=== PATIENT | male | born 1955 ===

== ENCOUNTER 2016-12-30 13:48 | Inpatient (IN) | payer BC, OTHER ==
--- NOTE | 2016-12-30 14:44 | RAD ---
HISTORY: chest pain COMPARISON: 04/16/2011. FINDINGS: LUNGS: No active pulmonary disease. PLEURA: No significant pleural effusion identified, no pneumothorax apparent. CARDIOVASCULAR: Normal heart size. Sternotomy wires are noted. OSSEOUS STRUCTURES: No significant abnormalities. VISUALIZED UPPER ABDOMEN: Normal. OTHER FINDINGS: None. IMPRESSION: No active disease.
[2016-12-30 14:55] LABS: BASO # 0.1 K/uL (0.0-0.2); BASO % 1.1 % (0.0-2.0); EOS # 0.3 K/uL (0.0-0.7); EOS % 3.3 % (0.0-4.0); HEMATOCRIT 22.3 % (35.0-51.0); LYMPH # 1.4 K/uL (1.0-4.3); LYMPH % 14.7 % (20.0-40.0); MEAN CELL VOLUME 85.4 fl (80.0-94.0); MEAN CORPUSCULAR HEMOGLOBIN 27.9 pg (27.0-31.0); MEAN CORPUSCULAR HGB CONC 32.7 g/dL (33.0-37.0); MEAN PLATELET VOLUME 8.2 fl (7.2-11.7); MONO # 0.6 K/uL (0.0-0.8); MONO % 6.6 % (0.0-10.0); NEUT # 7.3 K/uL (1.8-7.0); NEUT % 74.3 % (50.0-75.0); NRBC % 0.1 % (0.0-0.0); RED CELL DISTRIBUTION WIDTH 13.9 % (11.5-14.5); WHITE BLOOD COUNT 9.8 K/uL (4.8-10.8)
--- NOTE | 2016-12-30 14:55 | ED PDOC ---
HPI: Chest Pain Time Seen by Provider: 12/30/16 14:12 Chief Complaint (Nursing): Chest Pain Chief Complaint (Provider): Chest Pain History Per: Patient History/Exam Limitations: no limitations Onset/Duration Of Symptoms: Days Current Symptoms Are (Timing): Still Present Severity: Mild Quality: "Pain" Associated Symptoms: denies: Nausea, Dyspnea, Diaphoresis Modifying Factors: None Exacerbating Factors: None Alleviating Factors: None Additional Complaint(s): Patient is a 61 year old male with a history of coronary artery bypass, HTN and DM, presents to ED for dizziness and chest pain that started yesterday. Patient reports chest pain is left sided, with no SOB, nausea, back pain or palpations. Past Medical History Reviewed: Historical Data, Nursing Documentation, Vital Signs Vital Signs: Last Vital Signs Temp 97.8 F 12/30/16 14:03 Pulse 71 12/30/16 15:30 Resp 20 12/30/16 14:03 BP 115/56 L 12/30/16 14:03 Pulse Ox 100 12/30/16 15:30 - Medical History PMH: Diabetes, HTN, Hyperlipidemia - Surgical History Other surgeries: bypass - Family History Family History: States: No Known Family Hx - Living Arrangements Living Arrangements: With Family - Allergies Allergies/Adverse Reactions: Allergies Allergy/AdvReac Type Severity Reaction Status Date / Time No Known Allergies Allergy Verified 12/30/16 14:02 LEONID Risk Score for UA/NSTEMI - LEONID Risk Score Age > 64: NO 3 or more CAD Risk Factors: YES Known CAD (Stenosis greater than 50%): NO Aspirin use in past 7 days: YES Severe Angina: NO EKG ST changes greater than 0.5mm: NO Positive Cardiac Marker: NO LEONID Score: 2 Risk %: 8% Review of Systems ROS Statement: Except As Marked, All Systems Reviewed And Found Negative Constitutional: Negative for: Fever, Chills Cardiovascular: Positive for: Chest Pain. Negative for: Palpitations, Light Headedness Respiratory: Negative for: Cough, Shortness of Breath Gastrointestinal: Negative for: Nausea, Vomiting Skin: Negative for: Rash Physical Exam - Reviewed Nursing Documentation Reviewed: Yes Vital Signs Reviewed: Yes - Physical Exam Appears: Positive for: Non-toxic, No Acute Distress Skin: Positive for: Normal Color, Warm Eye Exam: Positive for: Normal appearance Neck: Positive for: Normal, Painless ROM Cardiovascular/Chest: Positive for: Regular Rate, Rhythm, Chest Non Tender. Negative for: Murmur Respiratory: Positive for: Normal Breath Sounds. Negative for: Respiratory Distress Pulses-Radial (L): 2+ Pulses-Radial (R): 2+ Gastrointestinal/Abdominal: Positive for: Normal Exam. Negative for: Tenderness Back: Positive for: Normal Inspection Extremity: Positive for: Normal ROM. Negative for: Pedal Edema, Calf Tenderness Neurologic/Psych: Positive for: Alert, Oriented. Negative for: Motor/Sensory Deficits - Laboratory Results Result Diagrams: 12/30/16 14:35 12/30/16 14:35 - ECG ECG: Positive for: Interpreted By Me ECG Rhythm: Positive for: Sinus Rhythm, ST/T Changes (depression is V4-V6) Rate: 71 O2 Sat by Pulse Oximetry: 100 (RA) Pulse Ox Interpretation: Normal Medical Decision Making Medical Decision Making: Time: 1410 Initial impression: Patient presenting with dizziness and chest pain. EKG concerning for ischemic changes. Initial plan: -- CK-MB -- CMP -- CPK -- Troponin -- CBC -- CXR -- ASA 0300pm Will sign out to Dr. Soriano to follow-up labs and imaging and reeval Scribe Attestation: Documented by Silvina Silva acting as a scribe for Jalyn Carl MD MD Scribe Attestation: All medical record entries made by the Scribe were at my direction and personally dictated by me. I have reviewed the chart and agree that the record accurately reflects my personal performance of the history, physical exam, medical decision making, and the department course for this patient. I have also personally directed, reviewed, and agree with the discharge instructions and disposition. Disposition - Clinical Impression Clinical Impression: Chest pain, Dizziness - Disposition Disposition Time: 15:31 Condition: FAIR
[2016-12-30 15:16] LABS: ALB/GLOB RATIO 1.4 (1.0-2.1); ALKALINE PHOSPHATASE 56 U/L (38-126); ALT/SGPT 26 U/L (21-72); AST/SGOT 29 U/L (17-59); BILIRUBIN,TOTAL 0.5 mg/dl (0.2-1.3); BLOOD UREA NITROGEN 36 mg/dl (9-20); CALCIUM 9.1 mg/dL (8.4-10.2); CARBON DIOXIDE 23 mmol/L (22-30); CHLORIDE 103 mmol/L (98-107); GFR AFRICAN-AMERICAN > 60; GLUCOSE,RANDOM 186 mg/dL (75-110); POTASSIUM 4.7 MMOL/L (3.6-5.0); SODIUM 139 mmol/l (132-148); TOTAL PROTEIN 7.5 G/DL (6.3-8.2)
--- NOTE | 2016-12-30 15:19 | ED PDOC ---
- Laboratory Results Result Diagrams: 12/30/16 14:35 12/30/16 14:35 - ECG O2 Sat by Pulse Oximetry: 100 (RA) Medical Decision Making Medical Decision Makin:00 Patient is signed out to me by Jalyn Carl MD pending ER workup, reassessment, and final disposition. Patient's labs demonstrate severe anemia. Transfusion ordered and discussed findings with patient. Consent signed. 1540 Elevated BUN, otherwise no clinically significant lab abnormalities, including negative troponin. [facility] Bedside rectal exam kosta Jackson RN: No signs of bleeding. Scribe Attestation: Documented by Alyssa Hennessy, acting as a scribe for Susan Dorman MD. Provider Scribe Attestation: All medical record entries made by the Scribe were at my direction and personally dictated by me. I have reviewed the chart and agree that the record accurately reflects my personal performance of the history, physical exam, medical decision making, and the department course for this patient. I have also personally directed, reviewed, and agree with the discharge instructions and disposition. Disposition Counseled Patient/Family Regarding: Studies Performed, Diagnosis - Clinical Impression Clinical Impression: Chest pain, Dizziness - POA Present On Arrival: None - Disposition Disposition: Admitted as In-Patient Disposition Time: 15:00 Condition: FAIR
[2016-12-30] MEDS ORDERED: Nitroglycerin 0.1 mg/hr Top Patch TD SCH (16:45)
--- NOTE | 2016-12-30 17:03 | HP ---
HISTORY OF PRESENT ILLNESS: This patient is a 61-year-old male who was admitted via the Emergency Ro om because of chest pain for the past 24 hours prior to presentation. It is left-sided, precordial. It does not radiate but it is associated with exertion and any form of movement. He also admits to marked shortness of breath but no palpitations. PAST MEDICAL HISTORY: Coronary artery bypass graft years ago, diabetes mellitus, hypertension, and h yperlipidemia. FAMILY HISTORY: Nonrevealing. SOCIAL HISTORY: He does not smoke or drink. REVIEW OF SYSTEMS: Essentially unremarkable. PHYSICAL EXAMINATION: GENERAL: The patient is alert, oriented, appears to be comfortable at present at rest. VITAL SIGNS: Blood pressure 115/56, pulse of 71, respiratory rate 20. He is afebrile. O2 sat 100% on nasal cannula oxygen. SKIN: Shows fair turgor. HEENT: Pupils equal and reactive to light and accommodation. Mouth shows fair hygiene. NECK: JVP flat. LUNGS: Clear. HEART: Regular. No murmurs or gallops. There is a scar from coronary artery bypass graft over the anterior chest wall area. No chest wall tenderness appreciated. ABDOMEN: Soft, nontender, no organomegaly. EXTREMITIES: Shows no edema or cyanosis. CENTRAL NERVOUS SYSTEM: Grossly intact. LABORATORY DATA: Remarkable for EKG that shows sinus rhythm, nonspecific ST-T changes. Sodium 139, potassium 4.7, BUN 36, creatinine 0.9, serum glucose 186, WBC 9.8, hemoglobin 7.3, platelet count 249 ,000. Chest x-ray shows no acute cardiopulmonary pathology. Serum troponin 0.070. IMPRESSION: Chest pains. One has to rule out acute coronary syndrome in the patient with coronary a rtery bypass graft, diabetes mellitus with hyperglycemia. PLAN: Monitor patient in telemetry. The patient also has severe anemia. We will transfuse packed r ed blood cells. This may contribute to chest pain. Would obtain cardiac evaluation, oxygen will be given. We will hold aspirin and Plavix. This patient has severe anemia. We will also hold any othe r form of anticoagulation for now. Further therapy will depend on findings. Bebeto Stokes MD cc: 62 TT: 12/30/2016 17:02:54 dn
[2016-12-30 17:13] LABS: PARTIAL THROMBOPLASTIN TIME 26.3 Seconds (25.6-37.1)
[2016-12-31 05:22] LABS: HEMATOCRIT 22.3 % (35.0-51.0); MEAN CELL VOLUME 86.2 fl (80.0-94.0); MEAN CORPUSCULAR HEMOGLOBIN 28.1 pg (27.0-31.0); MEAN CORPUSCULAR HGB CONC 32.6 g/dL (33.0-37.0); RED CELL DISTRIBUTION WIDTH 14.3 % (11.5-14.5)
[2016-12-31 05:32] LABS: CHOLESTEROL 187 mg/dL (0-199)
[2016-12-31] MEDS: Metoprolol Succinate 25 mg XL Tab PO SCH (08:07)
[2016-12-31] MEDS ORDERED: Metoprolol Succinate 25 mg XL Tab PO SCH (09:00)
[2016-12-31] MEDS ORDERED: Diatriz Meglumine/Diatriz Sod 30 ML BOTTLE PO ONE (09:03)
--- NOTE | 2016-12-31 09:37 | CP.PCM.CON ---
History of Present Illness - History of Present Illness History of Present Illness: Full Note Dictated Atypical chest pain H/O CABG H/O Fem-Pop bypass Sx Bilat carotid bruits DM(II)/HTN/Dyslipidemia Anemia with Vit B12 deficiency No evidence of ACS found Have requested Carotid sonogram. Past Patient History - Past Medical History & Family History Past Medical History?: Yes - Past Social History Smoking Status: Former Smoker - CARDIAC Hx Cardiac Disorders: Yes Hx Hypertension: Yes - PULMONARY Hx Respiratory Disorders: No - NEUROLOGICAL Hx Neurological Disorder: No - HEENT Hx HEENT Problems: No - RENAL Hx Chronic Kidney Disease: No - ENDOCRINE/METABOLIC Hx Endocrine Disorders: Yes Hx Diabetes Mellitus Type 2: Yes - HEMATOLOGICAL/ONCOLOGICAL Hx Blood Disorders: Yes Hx AIDS: No Hx Anemia: Yes Hx Human Immunodeficiency Virus (HIV): No - INTEGUMENTARY Hx Dermatological Problems: Yes Other/Comment: PSORIASIS - MUSCULOSKELETAL/RHEUMATOLOGICAL Hx Musculoskeletal Disorders: No Hx Falls: No - GASTROINTESTINAL Hx Gastrointestinal Disorders: No - GENITOURINARY/GYNECOLOGICAL Hx Genitourinary Disorders: No - PSYCHIATRIC Hx Psychophysiologic Disorder: No Hx Substance Use: No - SURGICAL HISTORY Hx Surgeries: Yes Hx Coronary Artery Bypass Graft: Yes (2010) - ANESTHESIA Hx Anesthesia: Yes Hx Anesthesia Reactions: No Meds Allergies/Adverse Reactions: Allergies Allergy/AdvReac Type Severity Reaction Status Date / Time No Known Allergies Allergy Verified 12/30/16 14:02 - Medications Medications: Current Medications Acetaminophen (Tylenol 325mg Tab) 650 mg PO Q4 PRN PRN Reason: Headache Atorvastatin Calcium (Lipitor) 10 mg PO DAILY [facility] Last Admin: 12/31/16 08:08 Dose: 10 mg Metformin HCl (Glucophage) 1,000 mg PO BID [facility] Last Admin: 12/31/16 08:08 Dose: 1,000 mg Metoprolol Succinate (Toprol Xl) 25 mg PO DAILY [facility] Last Admin: 12/31/16 08:07 Dose: Not Given Results - Vital Signs Recent Vital Signs: Last Vital Signs Temp 99.3 F 12/31/16 07:54 Pulse 82 12/31/16 07:54 Resp 18 12/31/16 07:54 BP 92/53 L 12/31/16 08:07 Pulse Ox 96 12/31/16 07:54 - Labs Result Diagrams: 12/31/16 05:00 12/30/16 14:35 Labs: Laboratory Results - last 24 hr 12/30/16 12/30/16 12/30/16 17:10 18:01 20:00 WBC RBC Hgb Hct MCV MCH MCHC RDW Plt Count Retic Count PT 10.8 INR 1.0 APTT 26.3 POC Glucose (mg/dL) 149 H Ferritin Lactate Dehydrogenase Troponin I 0.0690 Triglycerides Cholesterol LDL Cholesterol Direct HDL Cholesterol Vitamin B12 12/30/16 12/31/16 12/31/16 21:05 05:00 05:00 WBC 8.0 RBC 2.59 L Hgb 7.3 L Hct 22.3 L MCV 86.2 MCH 28.1 MCHC 32.6 L RDW 14.3 Plt Count 219 Retic Count PT INR APTT POC Glucose (mg/dL) 301 H Ferritin Lactate Dehydrogenase Troponin I Triglycerides 172 H Cholesterol 187 LDL Cholesterol Direct 127 HDL Cholesterol 27 L Vitamin B12 12/31/16 12/31/16 12/31/16 05:00 05:21 07:55 WBC RBC Hgb Hct MCV MCH MCHC RDW Plt Count Retic Count 4.8 H PT INR APTT POC Glucose (mg/dL) 302 H Ferritin Lactate Dehydrogenase Troponin I 0.0750 Triglycerides Cholesterol LDL Cholesterol Direct HDL Cholesterol Vitamin B12 12/31/16 08:12 WBC RBC Hgb Hct MCV MCH MCHC RDW Plt Count Retic Count PT INR APTT POC Glucose (mg/dL) Ferritin 8.8 Lactate Dehydrogenase 397 Troponin I Triglycerides Cholesterol LDL Cholesterol Direct HDL Cholesterol Vitamin B12 220 L
--- NOTE | 2016-12-31 10:21 | CP.PCM.CON ---
History of Present Illness - History of Present Illness History of Present Illness: This is a 61 yrs old male who came to the Er with c/o left chest pain which was severe. The pain was on the left side. In the ER he had a chest xray which was normal. The only abnormality in all his blood work was hgb of 7.3. Pt gives no h/o rectal bleeding, no hematuria or hemetemesis. No change in the caliber or color of the stools. He has a h/o having a coronary bypass 5 yrs ago, and since then has been on plavix and aspirin. No h/o abdominal pain or GERD. In the ER his cbc showed a wbc of 9.8, Hgb 7.3gms, MCV85, and platelet count was normal at 249. He has DM2 as well as hypertension He smoked 1 ppd for almost 40 yrs, but stopped 5 yrs ago. Drinks socially. Past Patient History - Past Medical History & Family History Past Medical History?: Yes - Past Social History Smoking Status: Former Smoker - CARDIAC Hx Cardiac Disorders: Yes Hx Hypertension: Yes - PULMONARY Hx Respiratory Disorders: No - NEUROLOGICAL Hx Neurological Disorder: No - HEENT Hx HEENT Problems: No - RENAL Hx Chronic Kidney Disease: No - ENDOCRINE/METABOLIC Hx Endocrine Disorders: Yes Hx Diabetes Mellitus Type 2: Yes - HEMATOLOGICAL/ONCOLOGICAL Hx Blood Disorders: Yes Hx AIDS: No Hx Anemia: Yes Hx Human Immunodeficiency Virus (HIV): No - INTEGUMENTARY Hx Dermatological Problems: Yes Other/Comment: PSORIASIS - MUSCULOSKELETAL/RHEUMATOLOGICAL Hx Musculoskeletal Disorders: No Hx Falls: No - GASTROINTESTINAL Hx Gastrointestinal Disorders: No - GENITOURINARY/GYNECOLOGICAL Hx Genitourinary Disorders: No - PSYCHIATRIC Hx Psychophysiologic Disorder: No Hx Substance Use: No - SURGICAL HISTORY Hx Surgeries: Yes Hx Coronary Artery Bypass Graft: Yes (2010) - ANESTHESIA Hx Anesthesia: Yes Hx Anesthesia Reactions: No Meds Allergies/Adverse Reactions: Allergies Allergy/AdvReac Type Severity Reaction Status Date / Time No Known Allergies Allergy Verified 12/30/16 14:02 - Medications Medications: Current Medications Acetaminophen (Tylenol 325mg Tab) 650 mg PO Q4 PRN PRN Reason: Headache Atorvastatin Calcium (Lipitor) 10 mg PO DAILY [facility] Last Admin: 12/31/16 08:08 Dose: 10 mg Metformin HCl (Glucophage) 1,000 mg PO BID [facility] Last Admin: 12/31/16 08:08 Dose: 1,000 mg Metoprolol Succinate (Toprol Xl) 25 mg PO DAILY [facility] Last Admin: 12/31/16 08:07 Dose: Not Given Physical Exam - Additional Findings Additional findings: Physical exam; Alert, well oriented, in no acute disress Neck; Supple, no ,adenopathy Chest; Clear, no rales or rhonchi Heart; RSR, no murmur Abd ; Soft, no mass. no h/s megaly. Results - Vital Signs Recent Vital Signs: Last Vital Signs Temp 99.3 F 12/31/16 07:54 Pulse 82 12/31/16 07:54 Resp 18 12/31/16 07:54 BP 92/53 L 12/31/16 08:07 Pulse Ox 96 12/31/16 07:54 - Labs Result Diagrams: 12/31/16 05:00 12/30/16 14:35 Labs: Laboratory Results - last 24 hr 12/30/16 12/30/16 12/30/16 17:10 18:01 20:00 WBC RBC Hgb Hct MCV MCH MCHC RDW Plt Count Retic Count PT 10.8 INR 1.0 APTT 26.3 POC Glucose (mg/dL) 149 H Ferritin Lactate Dehydrogenase Troponin I 0.0690 Triglycerides Cholesterol LDL Cholesterol Direct HDL Cholesterol Vitamin B12 12/30/16 12/31/16 12/31/16 21:05 05:00 05:00 WBC 8.0 RBC 2.59 L Hgb 7.3 L Hct 22.3 L MCV 86.2 MCH 28.1 MCHC 32.6 L RDW 14.3 Plt Count 219 Retic Count PT INR APTT POC Glucose (mg/dL) 301 H Ferritin Lactate Dehydrogenase Troponin I Triglycerides 172 H Cholesterol 187 LDL Cholesterol Direct 127 HDL Cholesterol 27 L Vitamin B12 12/31/16 12/31/16 12/31/16 05:00 05:21 07:55 WBC RBC Hgb Hct MCV MCH MCHC RDW Plt Count Retic Count 4.8 H PT INR APTT POC Glucose (mg/dL) 302 H Ferritin Lactate Dehydrogenase Troponin I 0.0750 Triglycerides Cholesterol LDL Cholesterol Direct HDL Cholesterol Vitamin B12 12/31/16 08:12 WBC RBC Hgb Hct MCV MCH MCHC RDW Plt Count Retic Count PT INR APTT POC Glucose (mg/dL) Ferritin 8.8 Lactate Dehydrogenase 397 Troponin I Triglycerides Cholesterol LDL Cholesterol Direct HDL Cholesterol Vitamin B12 220 L Assessment & Plan - Assessment and Plan (Free Text) Assessment: IMP since his admission I had ordered tests. his retic count is 4,8., ferritin low at 8.8ng, vit b 12 only 220.This combined defiiciency makes me wonder if he has a stomach lesion, which could be bleeding microscopically. Plan: plan; Have ordered CT scan of the chest, abdomen and pelvis. He has been transfused 2 units of packed cells, by now, . While he is in the hospital will give him IV iron + B12 sub q until the other results come back. - Date & Time Date: 12/31/16 Time: 10:39
--- NOTE | 2016-12-31 11:57 | CON ---
DATE: 12/31/2016 He is hospitalized under Dr. Stokes's care. This 61-year-old, hypertensive, diabetic man who used to be an ex-smoker reports having developed sev ere claudication in his right lower extremity, for which he underwent bypass procedure in 2010. Thre e years back, subsequently required coronary bypass graft surgery and has been doing well, though eleanor e degree of claudication in the right leg has persisted. He reports having developed aches and pains in the upper part of his body for approximately 5-6 days. He came into the hospital complaining of a persistent right infraclavicular and right shoulder pain, which is not connected to any physical ex ertion, but body movements have been painful. The patient denies history suggestive of congestive ca rdiac failure. He has taken his medicines regularly. Denies any lateralizing neurological symptoms. PHYSICAL EXAMINATION: GENERAL: Shows a middle-aged man who is lying comfortably in bed, at this point, free of any discomf ort. VITAL SIGNS: Has a heart rate of 74 beats per minute, regular, and his blood pressure in both upper extremities was 100/60 mmHg. His jugular venous pressure was not elevated. EXTREMITIES: There was no edema over his lower extremities. The pedal pulses were not palpable. NECK: There were loud carotid bruits bilaterally, louder on the right side as compared to the left s pool. HEART: Scar of sternotomy was evident. The first and second heart sounds were normal. There was a very brief apical systolic murmur, but no gallop rhythm. LUNGS: There were no rales. ABDOMEN: Soft. Liver and spleen were not palpable. His electrocardiogram in the Emergency Room showed sinus rhythm at 71 beats per minute with depressed ST segments in leads II and aVF as well as V3, V4, V5, and V6. There were no inversion of T waves a nd no Q-waves were seen on the electrocardiogram. A followup cardiogram has been requested to see if these changes were transient or whether these changes are chronic. Three sets of cardiac enzymes ar e negative for any evidence of myocyte injury. His hemoglobin and hematocrit were 7.3 g and 22.3% re spectively. MCV was normal. His WBC count and platelet counts were normal. His retic count was 4.8 %, which indicates significant marrow response to anemia. His serum ferritin was 8.8 and his BUN and creatinine were 36 and 0.9 mg percent. GFR exceeded 60 mL per minute. LDH was also normal, indicat ing no ongoing hemolysis. Vitamin B12 level was 202 pg/mL, indicative of B12 deficiency. His LDL ch olesterol was 127 and his HDL cholesterol was 27, which is markedly depressed. IMPRESSION: At this time is diffuse vascular disease as evidenced by severe claudication in lower ex tremity requiring bypass procedure, evidence of coronary artery disease in the form of requiring yariel nary bypass graft surgery and loud carotid bruits on both sides. There is no evidence of acute coron raj syndrome. The patient will have a carotid sonogram and would require B12 replacement. At this j uncture, he is hemodynamically stable. Mg Burns MD cc: 23 TT: 12/31/2016 11:57:21 Confirmation # [id number] Dictation # [id number]
--- NOTE | 2016-12-31 12:27 | PQF ANEMIA ---
Dr. Stokes, Please clarify the type of anemia: if known after work -up completed: see the Physician Response Section below Hematology consult:-- his retic count is 4,8., ferritin low at 8.8ng, vit b 12 only 220.This combined defiiciency makes me wonder if he has a stomach lesion, which could be bleeding microscopically. Plan: Have ordered CT scan of the chest, abdomen and pelvis. He has been transfused 2 units of packed cells, by now, . While he is in the hospital will give him IV iron + B12 sub q until the other results come back. This form is a permanent part of the medical record Clarification of your documentation is requested to better reflect the severity of illness and intensity of treatment of your patient. Indicators present [] Anemia [] Drop in H&H from []___ to []___ [] Hypotension [] GI Bleed [] Transfusion(s) [] Acute bleed other sites [] Tachycardia [] Surgical Procedure Blood Loss (expected not a complication) Other:[] Location in the medical record that reflects the above clinical findings: [] Treatment Provided: [] PHYSICIAN'S RESPONSE Based on your medical judgment of the clinical indicators outlined above, are you treating this patient for a known or suspected: [] Acute blood loss anemia [] Chronic blood loss anemia [] Acute on Chronic blood loss anemia [] Anemia due to malignancy [] Anemia due to chemotherapy or radiation therapy [] Anemia of Chronic Disease, please specify: [] [] Other, please indicate type of anemia []____ [] If Unable to Determine, please check the box, sign and date. Present On Admission (POA) Indicator: [] Present at the time of admission [] Not present at the time of admission [] Clinically Undetermined In responding to this query, please exercise your independent professional judgment. The fact that a question is asked does not imply that any particular answer is desired or expected. Thank you for your clarification on this documentation. If you have any questions please call. * Thank you, Veronica Kim RN BSN ext. #[phone] MTDD
--- NOTE | 2016-12-31 13:45 | CP.PCM.PN ---
Subjective - Date & Time of Evaluation Date of Evaluation: 12/31/16 Time of Evaluation: 13:47 - Subjective Subjective: DENIES CHEST PAINS TODAY BUT INDICATES THAT HE HAS ON AND OFF ABDOMINAL PAINS Objective - Vital Signs/Intake and Output Vital Signs (last 24 hours): Temp Pulse Resp BP Pulse Ox 98.6 F 82 18 90/50 L 96 12/31/16 11:58 12/31/16 11:58 12/31/16 11:58 12/31/16 11:58 12/31/16 11:58 - Medications Medications: Current Medications Acetaminophen (Tylenol 325mg Tab) 650 mg PO Q4 PRN PRN Reason: Headache Atorvastatin Calcium (Lipitor) 10 mg PO DAILY [facility] Last Admin: 12/31/16 08:08 Dose: 10 mg Cyanocobalamin (Vitamin B12 1000 Mcg/Ml Inj) 1,000 mcg IM DAILY [facility] Insulin Human Lispro (Humalog) 0 units SC ACHS [facility] PRN Reason: Protocol Metformin HCl (Glucophage) 1,000 mg PO BID [facility] Last Admin: 12/31/16 08:08 Dose: 1,000 mg Metoprolol Succinate (Toprol Xl) 25 mg PO DAILY [facility] Last Admin: 12/31/16 08:07 Dose: Not Given - Labs Labs: 12/31/16 05:00 PT 10.8 Seconds (9.8-13.1) 12/30/16 17:10 INR 1.0 (0.9-1.2) 12/30/16 17:10 APTT 26.3 Seconds (25.6-37.1) 12/30/16 17:10 - Constitutional Appears: Chronically Ill - Head Exam Head Exam: ATRAUMATIC, NORMAL INSPECTION, NORMOCEPHALIC - Eye Exam Eye Exam: EOMI, Normal appearance, PERRL Pupil Exam: NORMAL ACCOMODATION, PERRL - ENT Exam ENT Exam: Mucous Membranes Moist, Normal Exam - Neck Exam Neck Exam: Full ROM, Normal Inspection. absent: Lymphadenopathy - Respiratory Exam Respiratory Exam: Clear to Ausculation Bilateral, NORMAL BREATHING PATTERN - Cardiovascular Exam Cardiovascular Exam: REGULAR RHYTHM, +S1, +S2. absent: Murmur - GI/Abdominal Exam GI & Abdominal Exam: Soft, Normal Bowel Sounds. absent: Tenderness - Rectal Exam Rectal Exam: NORMAL INSPECTION - Extremities Exam Extremities Exam: Full ROM, Normal Capillary Refill, Normal Inspection. absent : Joint Swelling, Pedal Edema - Back Exam Back Exam: NORMAL INSPECTION - Neurological Exam Neurological Exam: Alert, Awake, CN II-XII Intact, Normal Gait, Oriented x3 - Psychiatric Exam Psychiatric exam: Normal Affect, Normal Mood - Skin Skin Exam: Dry, Intact, Normal Color, Warm Assessment and Plan - Assessment and Plan (Free Text) Assessment: CHEST PAIN ABDOMINAL PAIN SEVERE ANEMIA?ETIOLOGY-R/O OCCULT MALIGNANCY DOUBT GI BLOOD LOSS--STOOL HEME NEGATIVE ASHD CLAUDICATION HTN Plan: TRANSFUSION OF PRBCS CONTINUE HEME AND CARDIAC EVAL CT OF CHEST/ABD/PELVIS--R/O LESIONS
--- NOTE | 2016-12-31 14:29 | CARD ---
APPROVED REPORT EKG Measurement Heart [id number] <Conclusion> Normal sinus rhythm Possible Left atrial enlargement ST & T wave abnormality, consider lateral ischemia Prolonged QT Abnormal ECG
[2016-12-31] MEDS ORDERED: Sodium Chloride 0.9% 50 ML IV ONE (15:49)
[2016-12-31] MEDS ORDERED: Iohexol 300 100 ML IJ ONE (15:49)
--- NOTE | 2016-12-31 17:07 | CT ---
PROCEDURE: CT Chest, Abdomen and Pelvis with intravenous contrast HISTORY: anemia, right chest pain COMPARISON: None. TECHNIQUE: IV dose administered: 95 cc Omnipaque 300 Radiation dose: Total exam DLP = 758.28 mGy-cm. This CT exam was performed using one or more of the following dose reduction techniques: Automated exposure control, adjustment of the mA and/or kV according to patient size, and/or use of iterative reconstruction technique. FINDINGS: CT CHEST WITH CONTRAST: LUNGS: Clear. No nodule, mass or consolidation. MEDIASTINUM: Unremarkable. Normal caliber aorta and pulmonary arterial trunk. No aortic dissection. Normal size heart. LYMPH NODES: Unremarkable. PLEURA: Unremarkable. No pneumothorax. No pleural fluid. BONES: Unremarkable. OTHER FINDINGS: None. CT ABDOMEN AND PELVIS: LIVER: Unremarkable. No gross lesion or ductal dilatation. GALLBLADDER AND BILE DUCTS: Unremarkable. PANCREAS: Unremarkable. No gross lesion or ductal dilatation. SPLEEN: Unremarkable. ADRENALS: Unremarkable. No mass. KIDNEYS AND URETERS: Unremarkable. No hydronephrosis. No solid mass. Incidental finding(s): Bilateral simple renal cysts the largest in the upper pole of the right kidney measures 4 cm. VASCULATURE: Unremarkable. No aortic aneurysm. BOWEL: Unremarkable. No obstruction. No gross mural thickening. Constipation without fecal impaction or obstruction. APPENDIX: No abnormalities to suggest acute appendicitis. No right lower quadrant inflammatory processes identified.Trace fluid in the right lower quadrant. PERITONEUM: Unremarkable. No free fluid. No free air. LYMPH NODES: Unremarkable. No enlarged lymph nodes. BLADDER: Markedly distended urinary bladder. REPRODUCTIVE: Unremarkable. BONES: No acute fracture. OTHER FINDINGS: None. IMPRESSION: No significant or acute findings to account for/ related to the clinical presentation. Additional benign and/or incidental findings described above.
[2016-12-31] MEDS: Insulin Lispro (humaLOG) 100 Units/ml Inj SC SCH ×2 (17:15→22:00)
--- NOTE | 2016-12-31 18:42 | US ---
PROCEDURE: Duplex ultrasound of the carotid and vertebral arteries. HISTORY: Bilat Carotid Bruits COMPARISON: None available. TECHNIQUE: Grayscale and duplex Doppler evaluation of the cervical carotid and vertebral arteries were performed. The common carotid, carotid bifurcations and cervical ICA and proximal ECA were evaluated. The vertebral arteries were evaluated for gross patency and direction. FINDINGS: RIGHT CAROTID ARTERIES: There are calcified atherosclerotic plaques in the carotid bulbs, external and internal carotid arteries. Common Carotid Artery: Normal. Maximal flow velocity of 113 cm/s. Carotid Bifurcation: Normal. Internal Carotid Artery:Normal. Maximal flow velocity of 110.4 cm/s. External Carotid Artery (proximal branches): Elevated. Maximal flow velocity of 202.3 cm/s. ICA/CCA Ratio: 1.0 LEFT CAROTID ARTERIES: There are calcified atherosclerotic plaques in the carotid bulbs, external and internal carotid arteries. Common Carotid Artery: Normal. Maximal flow velocity of 141.0 cm/s. Carotid Bifurcation: Normal. Internal Carotid Artery:Normal. Maximal flow velocity of 126.6 cm/s. External Carotid Artery (proximal branches): Elevated. Maximal flow velocity of 175.4 cm/s. ICA/CCA Ratio: 1.0 VERTEBRAL ARTERIES: Right Vertebral Artery: Patent. Antegrade flow. Left Vertebral Artery: Patent. Antegrade flow. OTHER FINDINGS: None. IMPRESSION: No evidence of hemodynamically significant stenosis in the internal carotid arteries. Elevated peak systolic velocities in bilateral external carotid arteries.
[2016-12-31 19:01] LABS: HEMATOCRIT 24.8 % (35.0-51.0); MEAN CELL VOLUME 86.1 fl (80.0-94.0); MEAN CORPUSCULAR HEMOGLOBIN 28.7 pg (27.0-31.0); MEAN CORPUSCULAR HGB CONC 33.3 g/dL (33.0-37.0); RED CELL DISTRIBUTION WIDTH 14.7 % (11.5-14.5); WHITE BLOOD COUNT 6.5 K/uL (4.8-10.8)
[2017-01-01] MEDS: Insulin Lispro (humaLOG) 100 Units/ml Inj SC SCH ×4 (06:35→21:35)
[2017-01-01 07:16] LABS: HEMATOCRIT 25.4 % (35.0-51.0); MEAN CELL VOLUME 86.5 fl (80.0-94.0); MEAN CORPUSCULAR HEMOGLOBIN 28.6 pg (27.0-31.0); RED CELL DISTRIBUTION WIDTH 14.8 % (11.5-14.5); WHITE BLOOD COUNT 8.2 K/uL (4.8-10.8)
--- NOTE | 2017-01-01 08:16 | CP.PCM.PN ---
Subjective - Date & Time of Evaluation Date of Evaluation: 01/01/17 Time of Evaluation: 08:14 - Subjective Subjective: Pt is feeling a little better today. He is on venofer as well as B12 daily. There is no bleeding from any site, and the CT scan of the chest and abdomen shows no malignancy, May elisabeth a GI work up./ Objective - Vital Signs/Intake and Output Vital Signs (last 24 hours): Temp Pulse Resp BP Pulse Ox 98.6 F 79 20 121/63 98 01/01/17 05:02 01/01/17 05:02 01/01/17 05:02 01/01/17 05:02 01/01/17 05:02 - Medications Medications: Current Medications Acetaminophen (Tylenol 325mg Tab) 650 mg PO Q4 PRN PRN Reason: Headache Atorvastatin Calcium (Lipitor) 10 mg PO DAILY [facility] Last Admin: 12/31/16 08:08 Dose: 10 mg Cyanocobalamin (Vitamin B12 1000 Mcg/Ml Inj) 1,000 mcg IM DAILY [facility] Insulin Human Lispro (Humalog) 0 units SC ACHS [facility] PRN Reason: Protocol Last Admin: 01/01/17 06:35 Dose: Not Given Metformin HCl (Glucophage) 1,000 mg PO BID [facility] Last Admin: 12/31/16 08:08 Dose: 1,000 mg Metoprolol Succinate (Toprol Xl) 25 mg PO DAILY [facility] Last Admin: 12/31/16 08:07 Dose: Not Given - Labs Labs: 01/01/17 06:30 PT 10.8 Seconds (9.8-13.1) 12/30/16 17:10 INR 1.0 (0.9-1.2) 12/30/16 17:10 APTT 26.3 Seconds (25.6-37.1) 12/30/16 17:10 Assessment and Plan - Assessment and Plan (Free Text) Plan: Plan; Continue venofer and B12,
[2017-01-01] MEDS: Metoprolol Succinate 25 mg XL Tab PO SCH (09:30)
--- NOTE | 2017-01-01 11:16 | CP.PCM.PN ---
Subjective - Date & Time of Evaluation Date of Evaluation: 01/01/17 Time of Evaluation: 11:18 - Subjective Subjective: NO CHEST OR ABDOMINBAL PAINS TODAY ALL WORKUP SO FAR NON-REVEALING EXCEPT FOR SEVERE ANEMIA Objective - Vital Signs/Intake and Output Vital Signs (last 24 hours): Temp Pulse Resp BP Pulse Ox 98.4 F 71 18 110/59 L 98 01/01/17 08:00 01/01/17 08:00 01/01/17 08:00 01/01/17 09:30 01/01/17 08:00 - Medications Medications: Current Medications Acetaminophen (Tylenol 325mg Tab) 650 mg PO Q4 PRN PRN Reason: Headache Last Admin: 01/01/17 10:16 Dose: 650 mg Atorvastatin Calcium (Lipitor) 10 mg PO DAILY [facility] Last Admin: 01/01/17 09:30 Dose: 10 mg Cyanocobalamin (Vitamin B12 1000 Mcg/Ml Inj) 1,000 mcg IM DAILY [facility] Last Admin: 01/01/17 09:32 Dose: 1,000 mcg Iron Sucrose 200 mg/ Sodium (Chloride) 110 mls @ 0 mls/hr IVPB DAILY [facility] PRN Reason: As Directed Last Admin: 01/01/17 10:22 Dose: 200 mls/hr Insulin Human Lispro (Humalog) 0 units SC ACHS [facility] PRN Reason: Protocol Last Admin: 01/01/17 06:35 Dose: Not Given Metformin HCl (Glucophage) 1,000 mg PO BID [facility] Last Admin: 12/31/16 08:08 Dose: 1,000 mg Metoprolol Succinate (Toprol Xl) 25 mg PO DAILY [facility] Last Admin: 01/01/17 09:30 Dose: Not Given - Labs Labs: 01/01/17 06:30 PT 10.8 Seconds (9.8-13.1) 12/30/16 17:10 INR 1.0 (0.9-1.2) 12/30/16 17:10 APTT 26.3 Seconds (25.6-37.1) 12/30/16 17:10 - Constitutional Appears: No Acute Distress - Head Exam Head Exam: ATRAUMATIC, NORMAL INSPECTION, NORMOCEPHALIC - Eye Exam Eye Exam: EOMI, Normal appearance, PERRL Pupil Exam: NORMAL ACCOMODATION, PERRL - ENT Exam ENT Exam: Mucous Membranes Moist, Normal Exam - Neck Exam Neck Exam: Full ROM, Normal Inspection. absent: Lymphadenopathy - Respiratory Exam Respiratory Exam: Clear to Ausculation Bilateral, NORMAL BREATHING PATTERN - Cardiovascular Exam Cardiovascular Exam: REGULAR RHYTHM, +S1, +S2. absent: Murmur - GI/Abdominal Exam GI & Abdominal Exam: Soft, Normal Bowel Sounds. absent: Tenderness - Rectal Exam Rectal Exam: NORMAL INSPECTION - Extremities Exam Extremities Exam: Full ROM, Normal Capillary Refill, Normal Inspection. absent : Joint Swelling, Pedal Edema - Back Exam Back Exam: NORMAL INSPECTION - Neurological Exam Neurological Exam: Alert, Awake, CN II-XII Intact, Normal Gait, Oriented x3 - Psychiatric Exam Psychiatric exam: Normal Affect, Normal Mood - Skin Skin Exam: Dry, Intact, Normal Color, Warm Assessment and Plan - Assessment and Plan (Free Text) Assessment: CHEST PAIN-RESOLVED ABDOMINAL PAIN RESOLVED SEVERE IRON DEFICIENCY ANEMIA-?ETIOLOGY DM HTN ASHD-S/P CABG Plan: CONTINUE IV IRON INFUSION D/C IN AM IF STABLE ADVISED OUT PT GASTROENTEROLOGY EVALUATION FOR POSSIBLE EGD AND COLONOSCOPY WHEN STABLE--HE WILL FOLLOW UP WIYTH HIS PMD TO ARRANGE SAME
[2017-01-01 21:56] LABS: RBC URINE 5 /hpf (0-3); URINE BILIRUBIN NEGATIVE (NEGATIVE); URINE BLOOD SMALL (NEGATIVE); URINE COLOR YELLOW (YELLOW); URINE GLUCOSE (UA) >=500 mg/dL (Normal); URINE KETONE 80 mg/dL (NEGATIVE); URINE LEUKOCYTE ESTERASE TRACE Leu/uL (Negative); URINE PROTEIN NEGATIVE (NEGATIVE); URINE UROBILINOGEN 0.2-1.0 mg/dL (0.2-1.0); WBC URINE 19 /hpf (0-5)
[2017-01-02 00:12] VITALS: RESP 18
[2017-01-02] MEDS: Insulin Lispro (humaLOG) 100 Units/ml Inj SC SCH ×2 (06:58→12:18)
[2017-01-02 08:52] LABS: HEMATOCRIT 27.7 % (35.0-51.0); MEAN CELL VOLUME 85.4 fl (80.0-94.0); MEAN CORPUSCULAR HEMOGLOBIN 28.6 pg (27.0-31.0); MEAN CORPUSCULAR HGB CONC 33.5 g/dL (33.0-37.0); RED CELL DISTRIBUTION WIDTH 14.9 % (11.5-14.5); WHITE BLOOD COUNT 8.6 K/uL (4.8-10.8)
[2017-01-02] MEDS: Metoprolol Succinate 25 mg XL Tab PO SCH (08:54)
--- NOTE | 2017-01-02 11:40 | CP.PCM.DIS ---
Provider - Provider Date of Admission: 12/30/16 15:52 Attending physician: Bebeto Stokes MD Time Spent in preparation of Discharge (in minutes): 35 Diagnosis - Discharge Diagnosis (1) Coronary artery disease Status: Acute (2) Chest pain Status: Acute (3) Iron deficiency anemia Status: Acute (4) Hypertension Status: Acute (5) Hyperlipidemia Status: Acute (6) Diabetes 1.5, managed as type 2 Status: Acute Hospital Course - Lab Results Lab Results: Most Recent Lab Values WBC 8.6 K/uL (4.8-10.8) 01/02/17 06:30 RBC 3.25 Mil/uL (4.40-5.90) L 01/02/17 06:30 Hgb 9.3 g/dL (12.0-18.0) L 01/02/17 06:30 Hct 27.7 % (35.0-51.0) L 01/02/17 06:30 MCV 85.4 fl (80.0-94.0) 01/02/17 06:30 MCH 28.6 pg (27.0-31.0) 01/02/17 06:30 MCHC 33.5 g/dL (33.0-37.0) 01/02/17 06:30 RDW 14.9 % (11.5-14.5) H 01/02/17 06:30 Plt Count 299 K/uL (130-400) 01/02/17 06:30 MPV 8.2 fl (7.2-11.7) 12/30/16 14:35 Neut % (Auto) 74.3 % (50.0-75.0) 12/30/16 14:35 Lymph % (Auto) 14.7 % (20.0-40.0) L 12/30/16 14:35 [place] % (Auto) 6.6 % (0.0-10.0) 12/30/16 14:35 Eos % (Auto) 3.3 % (0.0-4.0) 12/30/16 14:35 Baso % (Auto) 1.1 % (0.0-2.0) 12/30/16 14:35 Neut # 7.3 K/uL (1.8-7.0) H 12/30/16 14:35 Lymph # 1.4 K/uL (1.0-4.3) 12/30/16 14:35 [place] # 0.6 K/uL (0.0-0.8) 12/30/16 14:35 Eos # 0.3 K/uL (0.0-0.7) 12/30/16 14:35 Baso # 0.1 K/uL (0.0-0.2) 12/30/16 14:35 Retic Count 4.8 % (0.5-1.5) H 12/31/16 07:55 Haptoglobin 164 mg/dL (43-212) 12/31/16 08:47 PT 10.8 Seconds (9.8-13.1) 12/30/16 17:10 INR 1.0 (0.9-1.2) 12/30/16 17:10 APTT 26.3 Seconds (25.6-37.1) 12/30/16 17:10 Sodium 139 mmol/l (132-148) 12/30/16 14:35 Potassium 4.7 MMOL/L (3.6-5.0) 12/30/16 14:35 Chloride 103 mmol/L (98-107) 12/30/16 14:35 Carbon Dioxide 23 mmol/L (22-30) 12/30/16 14:35 Anion Gap 18 (10-20) 12/30/16 14:35 BUN 36 mg/dl (9-20) H 12/30/16 14:35 Creatinine 0.9 mg/dL (0.8-1.5) 12/30/16 14:35 Est GFR ( Amer) > 60 12/30/16 14:35 Est GFR (Non-Af Amer) > 60 12/30/16 14:35 POC Glucose (mg/dL) 351 mg/dL (65-110) H 01/02/17 11:01 Random Glucose 186 mg/dL (75-110) H 12/30/16 14:35 Calcium 9.1 mg/dL (8.4-10.2) 12/30/16 14:35 Ferritin 8.8 ng/mL 12/31/16 08:12 Total Bilirubin 0.5 mg/dl (0.2-1.3) 12/30/16 14:35 AST 29 U/L (17-59) 12/30/16 14:35 ALT 26 U/L (21-72) 12/30/16 14:35 Alkaline Phosphatase 56 U/L (38-126) 12/30/16 14:35 Lactate Dehydrogenase 397 U/L (313-618) 12/31/16 08:12 Total Creatine Kinase 103 U/L (55-170) 12/30/16 14:35 CK-MB (Mass) 2.39 ng/mL (0.0-3.38) 12/30/16 14:35 Troponin I 0.0750 ng/mL (0.00-0.120) 12/31/16 05:00 Total Protein 7.5 G/DL (6.3-8.2) 12/30/16 14:35 Total Protein (PEP) 6.0 g/dL (6.1-8.1) L 01/01/17 10:15 Albumin 4.3 g/dL (3.5-5.0) 12/30/16 14:35 Globulin 3.2 gm/dL (2.2-3.9) 12/30/16 14:35 Albumin/Globulin Ratio 1.4 (1.0-2.1) 12/30/16 14:35 Triglycerides 172 mg/DL (0-149) H 12/31/16 05:00 Cholesterol 187 mg/dL (0-199) 12/31/16 05:00 LDL Cholesterol Direct 127 mg/dL (0-129) 12/31/16 05:00 HDL Cholesterol 27 MG/DL (30-70) L 12/31/16 05:00 Vitamin B12 220 pg/mL (239-931) L 12/31/16 08:12 Urine Color Yellow (YELLOW) 01/01/17 21:40 Urine Clarity Clear (Clear) 01/01/17 21:40 Urine pH 5.0 (5.0-8.0) 01/01/17 21:40 Ur Specific [place] 1.030 (1.003-1.030) 01/01/17 21:40 Urine Protein Negative mg/dL (NEGATIVE) 01/01/17 21:40 Urine Glucose (UA) >=500 mg/dL (Normal) 01/01/17 21:40 Urine Ketones 80 mg/dL (NEGATIVE) 01/01/17 21:40 Urine Blood Small (NEGATIVE) 01/01/17 21:40 Urine Nitrate Negative (NEGATIVE) 01/01/17 21:40 Urine Bilirubin Negative (NEGATIVE) 01/01/17 21:40 Urine Urobilinogen 0.2-1.0 mg/dL (0.2-1.0) 01/01/17 21:40 Ur Leukocyte Esterase Trace Thanh/uL (Negative) 01/01/17 21:40 Urine RBC (Auto) 5 /hpf (0-3) H 01/01/17 21:40 Urine Microscopic WBC 19 /hpf (0-5) H 01/01/17 21:40 Ur Squamous Epith Cells 3 /hpf (0-5) 01/01/17 21:40 Hyaline Casts 0-2 /hpf (0-2) 01/01/17 21:40 Stool Occult Blood Negative (NEGATIVE) 12/30/16 16:21 Blood Type O POSITIVE 12/30/16 15:12 Blood Type Confirm O POSITIVE 12/30/16 15:45 Antibody Screen Negative 12/30/16 15:12 Crossmatch See Detail 12/30/16 15:12 BBK History Checked No verified bt 12/30/16 15:12 - Hospital Course Hospital Course: chest and abdominal pains resolved serum glucose uncontrolled due to discontinuation of glucophage for iv contrast ct scan given iv iron infusion for correction of anemia Discharge Exam - Head Exam Head Exam: ATRAUMATIC, NORMAL INSPECTION, NORMOCEPHALIC - Eye Exam Eye Exam: EOMI, Normal appearance, PERRL Pupil Exam: NORMAL ACCOMODATION, PERRL - GI/Abdominal Exam GI & Abdominal Exam: Normal Bowel Sounds - Rectal Exam Rectal Exam: NORMAL INSPECTION - Neurological Exam Neurological exam: Alert, CN II-XII Intact, Normal Gait, Oriented x3, Reflexes Normal - Psychiatric Exam Psychiatric exam: Normal Affect, Normal Mood - Skin Skin Exam: Dry, Intact, Normal Color, Warm Discharge Plan - Follow Up Plan Condition: FAIR Disposition: HOME/ ROUTINE Patient education suggested?: Yes Additional Instructions: discharge home today refer to private physician in [place] for gastroenterology workup of anemia resune glucophage as outpt will give insulin coverage for uncontrolled dm for now
[2017-01-02 12:14] VITALS: BP 102/56; PULSE 65; TEMP 98.3; O2SAT 98
[2017-01-03 00:16] LABS: IGG,SERUM 1028 mg/dL (694-1618); IGM,SERUM 63 mg/dL (48-271)
--- NOTE | 2017-01-03 08:46 | CARD ---
APPROVED REPORT EKG Measurement Heart [id number] OR [id number] [id number] <Conclusion> Normal sinus rhythm Possible Left atrial enlargement Marked ST abnormality, possible anterolateral subendocardial injury Abnormal ECG
[2017-01-03 18:54] LABS: BETA 1 GLOBULIN 0.4 g/dL (0.4-0.6); BETA 2 GLOBULIN 0.3 g/dL (0.2-0.5)
== END 2017-01-02 13:37 | disposition home or self-care (01) | DRG 812 ==
LOC: H.ER 13:48 → H.ERHOLD 15:52 → H.TEL 16:55
PROVIDERS: ADMIT Internal Medicine Pulmonary Disease; ATTEND Internal Medicine Pulmonary Disease
PROC: 30233N1 Transfusion of Nonautologous Red Blood Cells into Peripheral Vein, Percutaneous Approach (ICD-10-PCS; principal; 2016-12-30)
DX: D50.9 Iron deficiency anemia, unspecified (principal); E11.65 Type 2 diabetes mellitus with hyperglycemia; I10 Essential (primary) hypertension; E53.8 Deficiency of other specified B group vitamins; E78.5 Hyperlipidemia, unspecified; I25.10 Atherosclerotic heart disease of native coronary artery without angina pectoris; I73.9 Peripheral vascular disease, unspecified; Z87.891 Personal history of nicotine dependence; Z95.1 Presence of aortocoronary bypass graft; L40.9 Psoriasis, unspecified; R07.9 Chest pain, unspecified; R10.9 Unspecified abdominal pain